=== PATIENT | male | born 1990 | race Caucasian/White ===

== ENCOUNTER 2025-02-16 17:41 | Emergency (ER) | payer OTHER, SELFPAY ==
--- NOTE | ~2025-02-16 | XR_ITS ---
CLINICAL HISTORY: pain s p fall 3 view left foot Comparison: None Findings: Acute lateral dislocation of the 4th toe metatarsophalangeal joint. No evidence of acute fracture. No significant arthritic change or erosions. No ankle effusion. No radiopaque foreign body. IMPRESSION: Acute lateral dislocation of the 4th toe at metatarsophalangeal joint. No evidence of acute fracture. This document has been electronically signed by: Antonio Romero MD on 02/16/2025 19:11:02
--- NOTE | ~2025-02-16 | XR_ITS ---
CLINICAL HISTORY: post-reduction 3 view left foot Comparison: CR - XR FOOT LT MIN 3V - 02/16/25 18:41 EDT Findings: Interval external reduction of the 4th toe with anatomic alignment. No evidence of acute fracture. No significant loss of joint space, osteophytes, or erosions. No ankle effusion. No radiopaque foreign body. IMPRESSION: Interval external reduction of the 4th toe with anatomic alignment. No evidence of acute fracture. This document has been electronically signed by: Antonio Romero MD on 02/16/2025 19:25:06
[2025-02-16 18:02] VITALS: BP 112/60; PULSE 62; RESP 16; TEMP 35.9; O2SAT 98; BMI 21.8
--- NOTE | 2025-02-16 18:15 | ED_ITS ---
HPI - General Adult General Chief complaint: Extremity Injury, Lower Stated complaint: toe pain, rock climbing Time Seen by Provider: 02/16/25 18:13 Source: patient Mode of arrival: wheelchair Limitations: no limitations History of Present Illness ED Provider: Amber Meek PA-C HPI narrative: Patient is a 34 year old assigned male at with no reported medical history presenting to the emergency department today with left 4th toe pain. Patient states that he was bouldering when he slipped and fell, landing on his left toes. Patient denies any head strike, loss of consciousness, dizziness, lightheadedness, abdominal pain, nausea, vomiting, fever, chills, blurry vision, double vision, loss of vision, chest pain, difficulty breathing, shortness of breath, back pain, night sweats, pain with urination, increased urinary frequency, increased urinary urgency, blood in his urine or stool, syncope or a near syncopal episode, bowel incontinence, bladder incontinence, or any other complaints at this time. Location: left (4th toe) Relieving factors: none Exacerbating factors: movement Associated symptoms: denies other symptoms Treatments prior to arrival: none Related Data Allergies Allergy/AdvReac Type Severity Reaction Status Date / Time No Known Allergies Allergy Verified 02/16/25 18:06 Review of Systems Constitutional: Constitutional: Reports no additional constitutional complaints, Denies chills, Denies fever(s) and Denies night sweats Eyes: Eyes: Reports no additional eye complaints, Denies blurry vision, Denies change in vision, Denies diplopia, Denies eye discharge, Denies loss of vision and Denies eye pain ENT: Denies dizziness Cardiovascular: Cardiovascular: Reports no additional cardiovascular complaints, Denies chest pain, Denies lightheadedness, Denies Loss of Consciousness and Denies dyspnea Respiratory: Respiratory: Reports no additional respiratory complaints and Denies dyspnea Gastrointestinal: Gastrointestinal: Reports no additional gastrointestinal complaints, Denies abdominal pain, Denies melena, Denies hematochezia, Denies change in bowel habits and Denies change in stool character Genitourinary: Genitourinary: Reports no additional male genitourinary c omplaints, Denies hematuria, Denies oliguria, Denies difficulty urinating, Denies dysuria, Denies urinary frequency, Denies urinary hesitancy, Denies urinary incontinence and Denies urinary urgency Musculoskeletal: Musculoskeletal: Reports no additional musculoskeletal complaints, Denies numbness and Denies tingling Comments: left 4th toe pain Neurologic: Denies dizziness, Denies loss of vision, Denies numbness and Denies tingling Psychiatric: Psychiatric: Reports no additional psychiatric complaints Endocrine: Endocrine: Reports no additional endocrine complaints Hematologic/Lymphatic: Hematologic/Lymphatic: Reports no additional hematologic/lymphatic complaints Allergic/Immunologic: Allergic/Immunologic: Reports no additional allergic/immunologic complaints PMFSH Past Medical History Attestation statement: The following information was validated with the patient. Source: old records reviewed and nursing notes reviewed Social History Social History Smoked in Last 30 Days: No Advance Directives: No Advance Directives Information Provided: No Physical Exam ED Vital Signs: Vital Signs - 24 hr 02/16/25 18:02 Temperature 96.6 F L Pulse Rate 62 Respiratory Rate 16 Blood Pressure 112/60 Pulse Oximetry 98 Oxygen Delivery Method Room Air BMI result Body Mass Index 21.8 Const General: cooperative, no acute distress, alert and awake Nutritional Appearance: well nourished Orientation/consciousness: patient oriented x3 HENMT Head: Yes normal to inspection and Yes atraumatic Ears: hearing grossly normal bilaterally and external ears normal General nose exam: Normal external nose present, no nasal discharge noted and no epistaxis Face and sinus: Yes normal facial exam, No abrasion and No laceration Mouth: Normal oral and palatal mucosa present, no drooling and no muffled voice Eyes General: appearance normal, both eyes and all related structures Periorbital: periorbital findings normal Eyelids: Yes eyelids normal Conjunctivae: conjunctivae normal Pupils: Equal, round and reactive pupils present EOM: EOMs intact bilaterally Neck Neck: Yes normal visual inspection, Yes full ROM and Yes no lymphadenopathy Resp Effort & Inspection: normal respiratory effort and able to speak in complete sentences Neuro General: patient oriented x3, moves all extremities and CN's II-XI intact bilaterally Cranial nerves: Yes Equal, round and reactive pupils present Cognition (Neuro): normal cognition Extrem Other: left 4th toe dislocation - good PMS in the distal left 4th toe General: Yes full ROM and Yes capillary refill normal Psych Appearance: grossly normal Mental Status: mental status grossly normal Affect: normal affect Attitude: cooperative Thought process: Normal thought process present Thought content: Normal thought content present Insight: Good insight present (Psych) Medications Administered Discontinued Medications Generic Name Dose Route Start Last Admin Trade Name Vickie PRN Reason Stop Dose Admin Ketorolac Tromethamine 15 mg 02/16/25 19:00 02/16/25 19:07 Ketorolac Tromethamine 15 Mg/Ml Vial IM 02/16/25 19:01 15 mg ONCE ONE Administration Procedures Orthopedic Joint Reduction Joint #1: Time Out Performed: Yes Side: left Joint Reduction Location: toe (4th) Analgesia: none Technique used: traction/counter-traction and direct manipulation Post-reduction neuro exam: intact Post-reduction vascular: intact Post Reduction X-Ray Obtained: Yes Post Reduction X-Ray Results: reduced Splint Applied: Yes Patient Tolerated Procedure: well Orthopedic Splinting/Casting Injury #1: Side: left Lower Extremity Immobilizer: boot orthosis Other Orthopedic Equipment: crutches Medical Decision Making Medical Decision Making MDM Narrative: Patient is a 34 year old assigned male at with no reported medical history presenting to the emergency department today with left 4th toe pain. Patient's physical exam was as noted in the physical exam portion of this note. Patient's left foot x-ray showed an acute lateral dislocation of the 4th toe at the metatarsophalangeal joint with no evidence of fracture. I explained my physical exam findings as well as all test results to the patient. I answered all questions asked by the patient. Patient's left 4th toe dislocation was reduced, per procedure note, without incident. Patient's post-reduction x-ray confirmed successful reduction. Patient's PMS was intact prior to and after reduction. Patient was placed in a short walking boot, without incident. Patient's PMS was intact prior to and after boot placement. Patient was given crutches with crutch instructions and able to demonstrate proper crutch use while in the department. I stressed the importance of the patient taking his medication as directed (either prescribed or as the over the counter packaging recommends). I stressed the importance of the patient following up with his primary care provider and the orthopedic team. I stressed the importance of the patient returning to the emergency department immediately if his symptoms were to worsen or if he were to develop any dizziness, shortness of breath, difficulty breathing, chest pain, blurry vision, loss of vision, nausea, vomiting, abdominal pain, fever, chills, back pain, or any other complaints. Patient verbalized agreement and understanding with this treatment plan and discharge. Differential Diagnosis Differential Diagnoses: The differential diagnosis associated with the presentation includes Toe dislocation Toe fracture Toe contusion Admission/Observation Consideration of admission/observation: Escalation of care including admission/observation considered Patient would have been admitted to the hospital had his work up had any findings where hospital admission was appropriate and his clinical presentation warranted hospital admission. Independent Interpretation I performed an independent interpretation of an: Plain X-Ray (Pre-reduction and post-reduction left foot) Interpretation: My interpretation is in agreement with the radiologist's impression of these imaging studies. CLINICAL HISTORY: pain s p fall 3 view left foot Comparison: None Findings: Acute lateral dislocation of the 4th toe metatarsophalangeal joint. No evidence of acute fracture. No significant arthritic change or erosions. No ankle effusion. No radiopaque foreign body. IMPRESSION: Acute lateral dislocation of the 4th toe at metatarsophalangeal joint. No evidence of acute fracture. This document has been electronically signed by: Antonio Romero MD on 02/16/2025 19:11:02 Dictated By: Antonio Romero MD Signed By: Electronically signed by Antonio Romero MD 02/16/251911 CLINICAL HISTORY: post-reduction 3 view left foot Comparison: CR - XR FOOT LT MIN 3V - 02/16/25 18:41 EDT Findings: Interval external reduction of the 4th toe with anatomic alignment. No evidence of acute fracture. No significant loss of joint space, osteophytes, or erosions. No ankle effusion. No radiopaque foreign body. IMPRESSION: Interval external reduction of the 4th toe with anatomic alignment. No evidence of acute fracture. This document has been electronically signed by: Antonio Romero MD on 02/16/2025 19:25:06 Dictated By: Antonio Romero MD Signed By: Electronically signed by Antonio Romero MD 02/16/251925 Radiology Impression Discussion of test interpretation with radiology: I have reviewed the radiologist's reading. Critical Care Time Critical Care Time Critical Care Time: Yes Total Critical Care Time: 33 Attestation: I spent 33 minutes of Critical Care Time with this patient. This does not include time spent on separately reported billable procedures. Discharge Plan Discharge Clinical Impression: Closed dislocation of toe Qualifiers: Encounter type: initial encounter Laterality: left Qualified Code(s): S93.105A - Unspecified dislocation of left toe(s), initial encounter Patient Disposition: Home, Self-Care Instructions: Walking Boot (ED) Additional Instructions: Follow up with your primary care provider and the orthopedic team. Remain in the walking boot when ambulating for at least 2 weeks. Return to the emergency department immediately if your symptoms worsen or if you develop any numbness, tingling, dizziness, shortness of breath, difficulty breathing, chest pain, blurry vision, loss of vision, nausea, vomiting, abdominal pain, fever, chills, back pain, or any other complaints. Please see the information below about our Patient Portal. If you are not yet enrolled in the [facility] Patient Portal, you will receive an enrollment email invitation following your visit to any [facility] setting. You may also self-enroll in the Patient Portal by visiting our website: [email or web address] The following information is required to access the Patient Portal: - Your [facility] Medical Record Number - Your personal home email address (must match what is in your electronic medical record, Registration staff can assist with this) - Name - Date of Capabilities of the Patient Portal: - Message some providers - View upcoming appointments - Access your health summary, medical history, and visit history - View current conditions and allergies - View procedure and lab results - View your medications, including guidelines, side effects, and precautions - Complete pre-appointment questionnaires requested by your provider - Ready summary reports of your office visits and procedures To access the Patient Portal Mobile Dione, follow these directions: - Search [employer]Recall in the Dione Store or Google [employer] Store - Download the Dione - Search for [facility] - Enter your login/password Referrals: [facility] Family Medicine [Provider Group] (Call to establish and follow up with a primary care provider. If you already have a primary care provider, please follow up with them.) [facility] Primary Care, [facility] [Provider Group] (Call to establish and follow up with a primary care provider. If you already have a primary care provider, please follow up with them.) [facility] Primary Care, [place] [Provider Group] (Call to establish and follow up with a primary care provider. If you already have a primary care provider, please follow up with them.) [facility] Primary Care, [facility] [Provider Group] (Call to establish and follow up with a primary care provider. If you already have a primary care provider, please follow up with them.) [facility] [Provider Group] (Call to establish and follow up with a primary care provider. If you already have a primary care provider, please follow up with them.) [facility] Orthopedic Surgeons [Provider Group] (Call to establish and follow up with the orthopedic team. ) Print Language: French
[2025-02-16] MEDS: Ketorolac Tromethamine 15 MG/ML VIAL IM (19:07)
--- NOTE | 2025-02-16 19:33 | PC.NURSE ---
walking boot provided w crutch training, wt bearing as tolerated in walking boot.
[2025-02-16 19:46] VITALS: BP 112/60; PULSE 62; RESP 16; TEMP 35.9; O2SAT 98
== END 2025-02-16 19:48 | disposition home or self-care (01) ==
PROVIDERS: Emergency Provider Internal Medicine
DX: S93.125A Dislocation of metatarsophalangeal joint of left lesser toe(s), initial encounter (principal); W17.89XA Other fall from one level to another, initial encounter; M79.675 Pain in left toe(s); Y93.31 Activity, mountain climbing, rock climbing and wall climbing; Y92.828 Other wilderness area as the place of occurrence of the external cause; Y99.8 Other external cause status
CPT/HCPCS: 28630; 73630; 96372; 99284; J1885

== ENCOUNTER → 2025-02-16 17:41 | Outpatient (BNV) | payer OTHER, SELFPAY | PROVIDERS: Emergency Provider Internal Medicine; Visit Provider Student in an Organized Health Care Education/Training Program | DX: S93.122A Dislocation of metatarsophalangeal joint of left great toe, initial encounter (principal) | CPT/HCPCS: 73630 ==